=== PATIENT | female | born 1935 | race Caucasian/White ===

== ENCOUNTER 2022-01-25 11:27 | Emergency (ER) | payer OTHER ==
[2022-01-25 11:58] VITALS: BP 144/69; PULSE 78; RESP 20; TEMP 99.1; BMI 20.7
[2022-01-25 13:41] LABS: HEMATOCRIT 39.7 % (32.4-45.2); HEMOGLOBIN 13.5 G/dL (10.7-15.3); MCH 31.8 pg (25.7-33.7); MCHC 33.9 g/dl (32.0-36.0); MEAN CELL VOLUME 93.6 fl (80-96); MEAN PLT VOLUME 8.6 fl (7.5-11.1); PLATELET COUNT 177.8 10^3/uL (134-434); RBC 4.24 10^6/uL (3.60-5.2); RDW 14.3 % (11.6-15.6); WHITE BLOOD COUNT 5.3 10^3/uL (4.0-10.8)
[2022-01-25 14:02] LABS: ALBUMIN 3.8 g/dl (3.4-5.0); BILIRUBIN,TOTAL 0.9 mg/dl (0.2-1); CALCIUM 9.3 mg/dl (8.5-10); CREATININE 0.6 mg/dl (0.55-1.3); TOT PROT 6.8 g/dl (6.4-8.2)
[2022-01-25 14:30] LABS: EPITHELIAL CELLS FEW /hpf
== END 2022-01-25 14:59 | disposition home or self-care (01) ==
LOC: FER 11:27
DX: M54.50 Low back pain, unspecified (principal); W01.0XXA Fall on same level from slipping, tripping and stumbling without subsequent striking against object, initial encounter
CPT/HCPCS: 36415; 70450-TC; 70486-TC; 72125-TC; 72128-TC; 80053; 81003; 81015; 85027; 87086; 87186; 99285-25

== ENCOUNTER 2023-06-22 14:45 | Emergency (ER) | payer OTHER ==
[2023-06-22 15:03] VITALS: PULSE 100; RESP 20; TEMP 98.7; BMI 24.0
[2023-06-22 16:21] VITALS: BP 196/88
== END 2023-06-22 16:30 | disposition home or self-care (01) ==
LOC: FER 14:45
DX: S00.03XA Contusion of scalp, initial encounter (principal); W01.198A Fall on same level from slipping, tripping and stumbling with subsequent striking against other object, initial encounter
CPT/HCPCS: 70450-TC; 71045-TC-FY; 72125-TC; 72170-TC-FY; 99284-25